=== PATIENT | female | born 1985 | race Caucasian/White ===

== ENCOUNTER → 2018-01-02 13:03 | Outpatient (CLI) | payer BC, SELFPAY ==
[2018-01-02 13:10] LABS: Adenovirus F 40/41, stool Not Detected (NotDetected); Astrovirus Not Detected (NotDetected); Campylobacter Not Detected (NotDetected); Cryptosporidium Not Detected (NotDetected); Cyclospora Cayetanesis Not Detected (NotDetected); Entamoeba histolytica Not Detected (NotDetected); Enteroaggregative E coli Not Detected (NotDetected); Enteropathogenic E coli Not Detected (NotDetected); Enterotoxigenic E coli Not Detected (NotDetected); Giardia lamblia Not Detected (NotDetected); Norovirus Not Detected (NotDetected); Plesimonas Shigalloides, PCR Not Detected (NotDetected); Rotavirus A Not Detected (NotDetected); Salmonella, PCR Not Detected (NotDetected); Sapovirus Not Detected (NotDetected); Shiga-like toxin E coli Not Detected (NotDetected); Shigella Enterovasive E coli Not Detected (NotDetected); Vibrio Cholerae Not Detected (NotDetected); Vibrio, PCR Not Detected (NotDetected); Yersinia Entercolitica, PCR Not Detected (NotDetected)
[2018-01-02 15:59] LABS: Clostridium Difficile A/B, PCR Detected (NotDetected)
== END ==
PROVIDERS: Visit Provider Family Medicine
DX: R19.7 Diarrhea, unspecified (principal)
CPT/HCPCS: 87507

== ENCOUNTER → 2019-06-25 13:38 | Outpatient (CLI) | payer BC, SELFPAY ==
[2019-06-25 14:15] LABS: Basophils # 0.1 K/mm3 (0-0.2); Basophils % 0.8 % (0.1-2.0); Eosinophils # 0.3 K/mm3 (0.0-0.4); Eosinophils % 4.3 % (0.1-12.0); Hematocrit 39.5 % (37.0-47.0); Hemoglobin 13.3 g/dL (12.2-16.2); Lymphocytes # 1.5 K/mm3 (0.7-4.5); Lymphocytes % 20.2 % (10-50); Mean Corpuscular HGB Conc 33.6 g/dL (31.8-35.4); Mean Corpuscular Hemoglobin 31.9 pg (27.0-31.2); Mean Corpuscular Volume 94.8 fl (81-99); Mean Platelet Volume 7.4 fl (7.4-10.4); Monocytes # 0.8 K/mm3 (0.1-1.0); Monocytes % 10.5 % (1.7-9.3); Neutrophils # 4.7 K/mm3 (1.8-7.8); Neutrophils % 64.2 % (37.0-80.0); Platelet Count 237 K/mm3 (142-424); Red Blood Count 4.16 M/mm3 (4.20-5.40); Red Cell Distribution Width 11.8 % (11.5-17.5); White Blood Count 7.3 K/mm3 (4.8-10.8)
[2019-06-25 14:35] LABS: Alanine Aminotransferase 26 U/L (12-78); Albumin/Globulin Ratio 1.3 (1.1-1.8); Alkaline Phosphatase 60 U/L (46-116); Anion Gap 14.3 mEq/L (5-15); Aspartate Amino Transferase 19 U/L (15-37); Bilirubin,Total 0.8 mg/dL (0.2-1.0); Blood Urea Nitrogen 7 mg/dL (7-18); Calcium 8.8 mg/dL (8.5-10.1); Carbon Dioxide 25 mmol/L (21.0-32.0); Chloride 102 mmol/L (98-107); Chol/HDL Ratio 2.2 (1-3.5); Cholesterol 146 mg/dL (140-200); Creatinine,Serum 0.68 mg/dL (0.55-1.02); Estimated Glomerular Filt Rate 99 ml/min (>60); GFR (African American) 120 ML/MIN (>60); Glucose 96 mg/dL (74-106); HDL Cholesterol 66 mg/dL (29-89); LDL Cholesterol 64 mg/dL (0-130); Potassium 4.3 mmoL/L (3.5-5.1); Sodium 137 mmol/L (136-145); Thyroid Stimulating Hormone 0.83 uIU/ml (0.358-3.740); Triglycerides 79 mg/dL (30-200); VLDL Cholesterol 16 mg/dL (0-40)
[2019-06-26 06:51] LABS: Vitamin D 25 Hydroxy 27.5 ng/mL (30.0-100.0)
== END ==
PROVIDERS: Visit Provider Physician Assistant
DX: R53.83 Other fatigue (principal); E55.9 Vitamin D deficiency, unspecified
CPT/HCPCS: 80053; 80061; 82652; 84436; 84443; 85025

== ENCOUNTER → 2023-06-27 10:55 | Outpatient (CLI) | payer BC, SELFPAY ==
[2023-06-27 14:50] LABS: Basophils # 0.1 K/mm3 (0-0.2); Basophils % 0.5 % (0.1-2.0); Eosinophils # 0.2 K/mm3 (0.0-0.4); Eosinophils % 2.1 % (0.1-12.0); Hematocrit 43.6 % (37.0-47.0); Hemoglobin 13.8 g/dL (12.2-16.2); Lymphocytes # 2.1 K/mm3 (0.7-4.5); Lymphocytes % 20.4 % (10-50); Mean Corpuscular HGB Conc 31.6 g/dL (31.8-35.4); Mean Corpuscular Hemoglobin 30.7 pg (27.0-31.2); Mean Corpuscular Volume 97.3 fl (81-99); Mean Platelet Volume 8.3 fl (7.4-10.4); Monocytes # 0.8 K/mm3 (0.1-1.0); Monocytes % 8.2 % (1.7-9.3); Neutrophils % 68.8 % (37.0-80.0); Platelet Count 362 K/mm3 (142-424); Red Blood Count 4.48 M/mm3 (4.20-5.40); Red Cell Distribution Width 12.1 % (11.5-17.5); White Blood Count 10.1 K/mm3 (4.8-10.8)
[2023-06-27 15:11] LABS: Alanine Aminotransferase 18 U/L (12-78); Albumin Level 4.5 g/dl (3.5-5.0); Albumin/Globulin Ratio 1.8 (1.1-1.8); Alkaline Phosphatase 51 U/L (38-126); Anion Gap 15.5 mEq/L (5-15); Aspartate Amino Transferase 28 U/L (14-36); Blood Urea Nitrogen 9 mg/dl (7-17); Calcium 9.2 mg/dl (8.4-10.2); Carbon Dioxide 25 mmol/L (22.0-30.0); Chloride 103 mmol/L (98-107); Chol/HDL Ratio 2.2 (1-3.5); Cholesterol 148 mg/dl (140-200); Estimated Glomerular Filt Rate 112 ml/min (>60); GFR (African American) 135 ML/MIN (>60); Globulin 2.5 g/dL (1.3-3.2); Glucose 116 mg/dl (74-100); HDL Cholesterol 67 mg/dl (40-60); Potassium 4.5 mmoL/L (3.5-5.1); Sodium 139 mmol/L (136-145); Triglycerides 89 mg/dl (30-150); VLDL Cholesterol 18 mg/dL (0-40)
[2023-06-27 15:22] LABS: Direct LDL Cholesterol 68.38 mg/dL (100-129)
[2023-06-27 15:30] LABS: T4 (Thyroxine) 7.4 ug/dl (5.53-11.0)
[2023-06-27 16:03] LABS: Vitamin B12 869 pg/mL (239-931)
[2023-06-29 09:15] LABS: FSH 10.9 mIU/mL (.); LH 15.2 mIU/mL (.); Progesterone 4.2 ng/mL (.); Testosterone,Total 22 ng/dL (8-60); Triiodothyronine (T3) Total 112 ng/dL (71-180)
[2023-07-02 00:08] LABS: Estrogen 214 pg/mL (.)
[2023-07-03 10:39] LABS: Anti Mullerian Hormone (AMH) 1.84
== END ==
PROVIDERS: PCP Physician Assistant; Visit Provider Physician Assistant
DX: F41.9 Anxiety disorder, unspecified (principal); R53.83 Other fatigue; Z68.23 Body mass index [BMI] 23.0-23.9, adult
CPT/HCPCS: 80053; 80061; 82306; 82397; 82607; 82670; 82672; 83001; 83002; 84144; 84403; 84436; 84443; 84480; 85025

== ENCOUNTER → 2023-09-15 08:53 | Outpatient (CLI) | payer BC, SELFPAY ==
[2023-09-15 21:21] LABS: Benzodiazepines Screen,Urine Negative ng/ml (<200)
[2023-09-15 21:22] LABS: Amphetamine/Metha Screen,Urine Negative ng/ml (<1000)
[2023-09-15 21:23] LABS: Barbiturates Screen,Urine Negative ng/ml (<200); Cannabinoid Screen,Urine Positive ng/ml (<50)
[2023-09-15 21:24] LABS: Cocaine Screen,Urine Negative ng/ml (<300)
[2023-09-15 21:25] LABS: Methadone Screen,Urine Negative ng/ml (<300); Opiate Screen,Urine Negative ng/ml (<300)
[2023-09-15 21:26] LABS: Phencyclidine Screen,Urine Negative ng/ml (<25)
== END ==
PROVIDERS: PCP Physician Assistant; Visit Provider Physician Assistant
DX: F90.9 Attention-deficit hyperactivity disorder, unspecified type (principal)
CPT/HCPCS: 80305

== ENCOUNTER 2024-12-04 15:23 | Outpatient (CLI) | payer BC, SELFPAY ==
[2024-12-04 16:29] LABS: Basophils # 0.1 K/mm3 (0-0.2); Eosinophils # 0.1 K/mm3 (0.0-0.4); Eosinophils % 1.8 % (0.1-12.0); Hematocrit 38.5 % (37.0-47.0); Hemoglobin 12.9 g/dL (12.2-16.2); Lymphocytes % 25.1 % (10-50); Mean Corpuscular HGB Conc 33.5 g/dL (31.8-35.4); Mean Corpuscular Hemoglobin 31.6 pg (27.0-31.2); Mean Corpuscular Volume 94.4 fl (81-99); Mean Platelet Volume 9.8 fl (7.4-10.4); Monocytes # 0.5 K/mm3 (0.1-1.0); Neutrophils # 5.2 K/mm3 (1.8-7.8); Neutrophils % 65.6 % (37.0-80.0); Platelet Count 393 K/mm3 (142-424); Red Blood Count 4.08 M/mm3 (4.20-5.40); Red Cell Distribution Width 11.5 % (11.5-17.5)
[2024-12-04 16:35] LABS: Creatinine,Urine Random 59 mg/dL (Not Estab.)
[2024-12-04 17:01] LABS: Alanine Aminotransferase 18 U/L (12-78); Albumin Level 4.7 g/dl (3.5-5.0); Albumin/Globulin Ratio 2.4 (1.1-1.8); Alkaline Phosphatase 50 U/L (38-126); Anion Gap 9.4 mEq/L (5-15); Aspartate Amino Transferase 25 U/L (14-36); Bilirubin,Total 0.9 mg/dl (0.2-1.3); Blood Urea Nitrogen 6 mg/dl (7-17); Calcium 9.1 mg/dl (8.4-10.2); Carbon Dioxide 29 mmol/L (22.0-30.0); Chloride 102 mmol/L (98-107); Chol/HDL Ratio 1.8 (1-3.5); Cholesterol 159 mg/dl (140-200); Estimated Glomerular Filt Rate 93 ml/min (>60); GFR (African American) 113 ML/MIN (>60); Glucose 100 mg/dl (74-100); HDL Cholesterol 90 mg/dl (40-60); Potassium 4.4 mmoL/L (3.5-5.1); Sodium 136 mmol/L (136-145); Total Protein,Serum 6.7 g/dl (6.3-8.2); Triglycerides 59 mg/dl (30-150); VLDL Cholesterol 12 mg/dL (0-40)
[2024-12-04 17:13] LABS: 25-OH Vitamin D, Total 39.9 ng/mL (30-100)
[2024-12-04 18:09] LABS: Hemoglobin A1C 4.5 % (4.0-6.0)
[2024-12-04 18:46] LABS: Direct LDL Cholesterol 54.45 mg/dL (100-129); Thyroid Stimulating Hormone 0.37 uIU/mL (0.465-4.68); Vitamin B12 712 pg/mL (239-931)
[2024-12-04 19:30] LABS: Ferritin 22.3 ng/ml (6.24-137)
[2024-12-05 10:24] LABS: Estradiol 36.3 pg/mL (.); FSH 12.1 mIU/mL (.); Testosterone,Total 18 ng/dL (8-60)
[2024-12-13 21:09] LABS: Vitamin B6 6.6 ug/L (3.4-65.2)
== END 2024-12-04 23:59 | disposition home or self-care (01) ==
LOC: LAB 15:23
PROVIDERS: Visit Provider Obstetrics & Gynecology
DX: F90.9 Attention-deficit hyperactivity disorder, unspecified type (principal); N94.3 Premenstrual tension syndrome; R53.83 Other fatigue
CPT/HCPCS: 36415; 80053; 80061; 82043; 82306; 82570; 82607; 82670; 82728; 83001; 83036; 83525; 83735; 84207; 84403; 84443; 85025